=== PATIENT | female | born 1980 | race Caucasian/White ===

== ENCOUNTER 2017-02-17 11:46 | Emergency (ER) | payer BC ==
[2017-02-17 12:01] VITALS: BP 113/77
--- NOTE | 2017-02-17 12:39 | UC ---
Skin Complaint HPI - HPI Summary HPI Summary: L groin fold red, tender, hard. Noticed slight soreness yesterday morning, dramatically worsened last night, now has hard area in the center. Over mons pubis where she shaves, also has several small sore spots. Is concerned this has something to do with her mirena, or possibly getting in a swimming pool the day before. Denies fever or history of skin infections. - History of Current Complaint Chief Complaint: UCGU Time Seen by Provider: 02/17/17 12:09 Stated Complaint: PERSONAL Hx Obtained From: Patient Hx Last Menstrual Period: spotting last month ?: No Onset/Duration: Gradual Onset, Lasting Days Timing: Constant Onset Severity: Mild Current Severity: Moderate Location: Discrete Character: Redness, Raised, Painful Aggravating: Touch Alleviating: Nothing Associated Signs & Symptoms: Positive: Rash, Tenderness - Allergy/Home Medications Allergies/Adverse Reactions: Allergies Allergy/AdvReac Type Severity Reaction Status Date / Time Ibuprofen Allergy Vomiting Verified 02/17/17 12:03 Naproxen Allergy See Comment Verified 02/17/17 12:02 Shellfish Allergy Allergy Swelling Verified 02/17/17 12:02 Review of Systems Constitutional: Negative Skin: Other - L groin red area Eyes: Negative ENT: Negative Respiratory: Negative Cardiovascular: Negative Gastrointestinal: Negative Genitourinary: Negative Motor: Negative Neurovascular: Negative Musculoskeletal: Negative Neurological: Negative Psychological: Negative All Other Systems Reviewed And Are Negative: Yes PMH/Surg Hx/FS Hx/Imm Hx Endocrine History Of: Reports: Thyroid Disease - Pt states history of both hypo/ hyper Denies: Diabetes Cardiovascular History Of: Denies: Cardiac Disorders, Hypertension Respiratory History Of: Denies: COPD, Asthma GI/ History Of: Reports: Gastrointestinal Bleed - from Naproxen use Denies: Ulcer Psychological History Of: Reports: Anxiety - hx of, Depression - hx of - Surgical History Surgical History: Yes Surgery Procedure, Year, and Place: appendectomy 1985, r salpingectomy at age 12yrs. left fallopian tube infection hospitalization 04/2016 - Family History Known Family History: Positive: Cardiac Disease - Social History Occupation: Employed Full-time - [employer] Alcohol Use: Rare Substance Use Type: None Smoking Status (MU): Light Every Day Tobacco Smoker Type: Cigarettes Amount Used/How Often: 5 cig. day Household Exposure Type: Cigarettes - Immunization History Most Recent Influenza Vaccination: never Most Recent Tetanus Shot: unknown Most Recent Pneumonia Vaccination: never Physical Exam Triage Information Reviewed: Yes Appearance: Pain Distress - with movement and sitting, Obese Vital Signs: Initial Vital Signs Temp 97.6 F 02/17/17 11:49 Pulse 96 02/17/17 11:49 Resp 18 02/17/17 11:49 BP 113/77 02/17/17 11:49 Vital Signs Reviewed: Yes Eye Exam: Normal Eyes: Positive: Conjunctiva Clear ENT Exam: Normal ENT: Positive: Normal ENT inspection, Hearing grossly normal, Pharynx normal, TMs normal Dental Exam: Normal Neck exam: Normal Neck: Positive: Supple, Nontender, No Lymphadenopathy Respiratory Exam: Normal Respiratory: Positive: Chest non-tender, Lungs clear, Normal breath sounds, No respiratory distress, No accessory muscle use Cardiovascular: Positive: No Murmur, Tachycardia - high 90s on exam Musculoskeletal Exam: Normal Neurological Exam: Normal Psychological Exam: Normal Skin Exam: Other - L groin folliculitis over shaved area, 20cm oblong region of cellulitis with firm but deep (not fluctuant) abscess in the center, approx 7cm x 2.5cm Course/Dx - Diagnoses Provider Diagnoses: L groin abscess (no procedure). L groin cellulitis Discharge - Discharge Plan Condition: Stable Disposition: HOME Prescriptions: Cephalexin CAP* [Keflex 500 CAP*] 500 mg PO QID #20 cap Sulfamethox/Trimethoprim DS* [Bactrim DS 800/160 TAB*] 1 tab PO BID #14 tab Patient Education Materials: Cellulitis (ED), Abscess (ED) Forms: *Work Release Referrals: Non Staff,Doctor [Primary Care Provider] - 1 Week Additional Instructions: As we discussed, your infection should show signs of improvement within about 1.5 days. Your abscess is not yet ready to incise (and may not need it) -- if it becomes larger, more painful, and doesn't drain on its own, please return here for incision and drainage. If you have rapidly increasing redness, fever, or marked worsening at any time, please come back right away. Apply frequent warm packs and take ibuprofen 400mg 2-4 times per day (with food in your stomach).
== END 2017-02-17 12:43 | disposition home or self-care (01) ==
LOC: UCCORT 11:46
DX: L02.214 Cutaneous abscess of groin (principal); L03.314 Cellulitis of groin; E66.9 Obesity, unspecified; Z88.6 Allergy status to analgesic agent; F17.210 Nicotine dependence, cigarettes, uncomplicated
CPT/HCPCS: 81003; 87086; 99212; G0463

== ENCOUNTER 2017-02-18 18:56 | Emergency (ER) | payer BC ==
[2017-02-18 20:50] VITALS: BP 108/62
[2017-02-18] MEDS ORDERED: Lidocaine 2% W/EPI 1:100,000* 20 ML MDV ONE (21:06)
--- NOTE | 2017-02-18 21:49 | UC ---
Skin Complaint HPI - HPI Summary HPI Summary: Patient was seen yesterday for an abscess in the left lower abdomen. she was treated with bactrim and keflex the area has since increased in size and redness. - History of Current Complaint Chief Complaint: UCSkin Time Seen by Provider: 02/18/17 20:55 Stated Complaint: PERSONAL Hx Obtained From: Patient Hx Last Menstrual Period: has mirena ?: Yes Onset/Duration: Sudden Onset, Lasting Days Skin Exposure Onset/Duration: Days Ago Timing: Constant Onset Severity: Moderate Current Severity: Severe Location: Discrete Character: Swelling, Pain, Redness, Raised Aggravating: Nothing Alleviating: Nothing - Allergy/Home Medications Allergies/Adverse Reactions: Allergies Allergy/AdvReac Type Severity Reaction Status Date / Time Ibuprofen Allergy Vomiting Verified 02/18/17 20:50 Naproxen Allergy See Comment Verified 02/18/17 20:50 Shellfish Allergy Allergy Swelling Verified 02/18/17 20:50 Review of Systems Constitutional: Negative Skin: Negative, Other - large indurated abcess in left lower abdomen Eyes: Negative ENT: Negative Respiratory: Negative Cardiovascular: Negative Gastrointestinal: Negative Genitourinary: Negative Motor: Negative Neurovascular: Negative Musculoskeletal: Negative Neurological: Negative Psychological: Negative All Other Systems Reviewed And Are Negative: Yes PMH/Surg Hx/FS Hx/Imm Hx Endocrine History Of: Reports: Thyroid Disease - Pt states history of both hypo/ hyper Denies: Diabetes Cardiovascular History Of: Denies: Cardiac Disorders, Hypertension Respiratory History Of: Denies: COPD, Asthma GI/ History Of: Reports: Gastrointestinal Bleed - from Naproxen use Denies: Ulcer Psychological History Of: Reports: Anxiety - hx of, Depression - hx of - Surgical History Surgical History: Yes Surgery Procedure, Year, and Place: appendectomy 1985, r salpingectomy at age 12yrs. left fallopian tube infection hospitalization 04/2016 - Family History Known Family History: Positive: Cardiac Disease - Social History Alcohol Use: Rare Substance Use Type: None Smoking Status (MU): Light Every Day Tobacco Smoker Type: Cigarettes Amount Used/How Often: 5 cig. day Household Exposure Type: Cigarettes - Immunization History Most Recent Influenza Vaccination: never Most Recent Tetanus Shot: unknown Most Recent Pneumonia Vaccination: never Physical Exam Triage Information Reviewed: Yes Appearance: Well-Appearing, Well-Nourished, Pain Distress Vital Signs: Initial Vital Signs Temp 98.2 F 02/18/17 20:45 Pulse 76 02/18/17 20:45 Resp 17 02/18/17 20:45 BP 108/62 02/18/17 20:45 Pulse Ox 100 02/18/17 20:45 Vital Signs Reviewed: Yes Eye Exam: Normal Eyes: Positive: Conjunctiva Clear ENT Exam: Normal ENT: Positive: Normal ENT inspection, Hearing grossly normal, Pharynx normal, TMs normal Dental Exam: Normal Neck exam: Normal Neck: Positive: Supple, Nontender, No Lymphadenopathy Respiratory Exam: Normal Respiratory: Positive: Chest non-tender, Lungs clear, Normal breath sounds Cardiovascular Exam: Normal Cardiovascular: Positive: RRR, No Murmur, Pulses Normal Abdomen Description: Positive: Nontender, No Organomegaly, Soft, Other: Bowel Sounds: Positive: Present Musculoskeletal Exam: Normal Musculoskeletal: Positive: Strength Intact, ROM Intact, No Edema Neurological Exam: Normal Neurological: Positive: Alert, Muscle Tone Normal Psychological Exam: Normal Skin: Positive: Other - large 9 in abcess follows the contour of the lower abdomen, red. Course/Dx - Course Course Of Treatment: hx obtained, exam performed, I and D of the abcess removed moderate amount of purulent drainage. wound culture taken. COntinue with current abx. dressing applied. - Diagnoses Provider Diagnoses: abscess Discharge - Discharge Plan Condition: Stable Disposition: HOME Patient Education Materials: Abscess (ED) Forms: *Work Release Additional Instructions: continue the current course of antibiotics. Hot pack the area multiple times a day. follow up if there is no improvement, fever develops or increase in pain.
== END 2017-02-18 22:04 | disposition home or self-care (01) ==
LOC: UCCORT 18:56
DX: L02.211 Cutaneous abscess of abdominal wall (principal); Z88.6 Allergy status to analgesic agent; F17.210 Nicotine dependence, cigarettes, uncomplicated
CPT/HCPCS: 10060; 87070; 87205; 87640; 87641; 99211; G0463

== ENCOUNTER 2018-01-05 19:29 | Emergency (ER) | payer BC ==
[2018-01-05 19:48] VITALS: BP 133/91
--- NOTE | 2018-01-05 20:21 | UC ---
Elbow Pain - HPI Summary HPI Summary: Pt presents with right elbow pain for the last 4 days. She tells me that she moved living quarters a few days ago and has been doing a lot of lifting, overhead movements, and painting. She denies specific injury, numbness, tingling , or previous injury. She has taken ibuprofen for her pain, which is not helping. - History of Current Complaint Chief Complaint: UCUpperExtremity Stated Complaint: ELBOW PAIN Time Seen by Provider: 01/05/18 20:21 Hx Obtained From: Patient Hx Last Menstrual Period: has mirena Onset/Duration: Atraumatic Severity Initially: Moderate Severity Currently: Moderate Pain Intensity: 8 Pain Scale Used: 0-10 Numeric Character: Dull, Aching Aggravating Factor(s): Movement, Pulling Alleviating Factor(s): Rest - Allergies/Home Medications Allergies/Adverse Reactions: Allergies Allergy/AdvReac Type Severity Reaction Status Date / Time MS Naproxen [Naproxen] Allergy See Comment Verified 01/05/18 19:48 MS Shellfish Allergy Allergy Swelling Verified 01/05/18 19:48 [Shellfish Allergy] Home Medications: Home Medications Levothyroxine TAB* [Synthroid 88 MCG TAB*] 88 mcg PO DAILY 01/05/18 [History Confirmed 01/05/18] Sertraline* [Zoloft*] 25 mg PO DAILY 01/05/18 [History Confirmed 01/05/18] PMH/Surg Hx/FS Hx/Imm Hx Previously Healthy: Yes Endocrine History: Hypothyroidism Psychological History: Anxiety, Depression - Surgical History Surgical History: Yes Surgery Procedure, Year, and Place: appendectomy 1985, r salpingectomy at age 12yrs. left fallopian tube infection hospitalization 04/2016 - Family History Known Family History: Positive: Cardiac Disease - Social History Occupation: Employed Full-time Lives: With Family Alcohol Use: Rare Substance Use Type: None Smoking Status (MU): Light Every Day Tobacco Smoker Type: Cigarettes Amount Used/How Often: 5 cig. day Household Exposure Type: Cigarettes - Immunization History Most Recent Influenza Vaccination: never Most Recent Tetanus Shot: unknown Most Recent Pneumonia Vaccination: never Review of Systems Constitutional: Negative Skin: Negative Respiratory: Negative Cardiovascular: Negative Neurovascular: Negative Musculoskeletal: Other: - Right elbow pain Neurological: Negative Psychological: Negative All Other Systems Reviewed And Are Negative: Yes Physical Exam Triage Information Reviewed: Yes Appearance: Well-Appearing, No Pain Distress, Well-Nourished Vital Signs: Initial Vital Signs Temp 97.6 F 01/05/18 19:42 Pulse 90 01/05/18 19:42 Resp 18 01/05/18 19:42 BP 133/91 01/05/18 19:42 Pulse Ox 98 01/05/18 19:42 Vital Signs Reviewed: Yes Neck: Positive: Supple, Nontender, No Lymphadenopathy Respiratory: Positive: Lungs clear, Normal breath sounds, No respiratory distress, No accessory muscle use Cardiovascular: Positive: RRR, No Murmur, Pulses Normal - Right radial and ulnar Musculoskeletal: Positive: Strength Intact - Right shoulder and elbow, ROM Intact - Right shoulder and elbow, No Edema - Right shoulder and elbow, Other: - Right elbow: TTP over lateral epicondyle. Pain with resisted middle finger extension. NTTP medial epicondyle or right shoulder. Neurological: Positive: Alert, Other: - Sensations intact right upper extremity Psychological: Positive: Age Appropriate Behavior Skin: Negative: rashes, significant lesion(s) Elbow Pain Course/Dx - Course Course Of Treatment: IMPRESSION: NO ACUTE OSSEOUS INJURY. IF SYMPTOMS PERSIST, RECOMMEND REPEAT IMAGING. Suspect lateral epicondylitis. Advised to RICE, try and an elbow brace, and will try Meloxicam for pain - Differential Dx/Diagnosis Provider Diagnoses: right lateral epicondylitis Discharge - Discharge Plan Condition: Stable Disposition: HOME Prescriptions: Meloxicam 7.5 mg PO BID PRN #20 tab PRN Reason: Pain Patient Education Materials: Tennis Elbow (ED) Forms: *Work Release Referrals: No Primary Care Phys,NOPCP [Primary Care Provider] - Additional Instructions: If you develop a fever, shortness of breath, chest pain, new or worsening symptoms - please call your PCP or go to the ED. Your blood pressure was high at todays visit. Please see your primary provider within 4 weeks for recheck and re-evaluation. 1) Heat and rest your elbow as much as possible over the next 24-48 hours 2) May try an OTC elbow brace to wear when active for comfort.
--- NOTE | 2018-01-05 20:21 | RAD ---
HISTORY: Right elbow pain, subacute trauma COMPARISONS: None VIEWS: 4, Frontal, lateral, and oblique views of the right elbow FINDINGS: BONE DENSITY: Normal. BONES: There is no displaced fracture. JOINTS: There is no arthropathy. There is no posterior supracondylar fat pad to suggest a joint effusion. ALIGNMENT: There is no dislocation. SOFT TISSUES: Unremarkable. OTHER FINDINGS: None. IMPRESSION: NO ACUTE OSSEOUS INJURY. IF SYMPTOMS PERSIST, RECOMMEND REPEAT IMAGING.
== END 2018-01-05 21:02 | disposition home or self-care (01) ==
LOC: UCEAST 19:29
DX: M77.11 Lateral epicondylitis, right elbow (principal); F17.210 Nicotine dependence, cigarettes, uncomplicated
CPT/HCPCS: 99212; G0463

== ENCOUNTER 2018-04-12 07:43 | Day surgery (SDC) | payer BC ==
[~2018-04-12 07:43] MED LIST: Buffered Lidocaine 0.9% SYRIN* 5 ML/SYR SYRINGE INTRADERM ONE; Sodium Citrate/Citric Acid* 15 ML UDC PO ONE
[2018-04-12] MEDS ORDERED: Sodium Citrate/Citric Acid* 15 ML UDC ONE (07:56)
[2018-04-12] MEDS ORDERED: ceFAZolin 2 GM PREMIX (*) 2 GM/50 ML BAG IVPB ONE (07:56)
[2018-04-12] MEDS ORDERED: Buffered Lidocaine 0.9% SYRIN* 5 ML/SYR SYRINGE ONE (07:56)
[2018-04-12] MEDS ORDERED: Bupivacaine 0.25% SDV* 30 ML ONE (09:00)
[2018-04-12] MEDS ORDERED: Naloxone* 0.4 MG/ML 1 ML VIAL IV PRN (09:39)
[2018-04-12] MEDS ORDERED: DiMENhydriNATE IV* 50 MG/ML VIAL IV PUSH PRN (09:39)
[2018-04-12] MEDS ORDERED: fentaNYL* 50 MCG/ML 2 ML VIAL (100 MCG VIAL) ONE ×2 (10:00→11:04)
[2018-04-12] MEDS ORDERED: Lidocaine 2% PF * 5 ML VIAL ONE (10:00)
[2018-04-12] MEDS ORDERED: Propofol* 10 MG/ML 20 ML BTL IV PUSH ONE (10:00)
[2018-04-12] MEDS ORDERED: Dexamethasone IV* 4 MG/ML 1 ML (4 MG) ONE (10:15)
[2018-04-12] MEDS: fentaNYL* 50 MCG/ML 2 ML VIAL (100 MCG VIAL) IV PRN ×2 (11:06→11:21)
[2018-04-12] MEDS ORDERED: HYDROcodone/ACETAMIN 5-325 MG* 1 TAB ONE ×2 (11:14→11:53)
--- NOTE | 2018-04-12 11:18 | OP ---
Operative Report - Blank - Operative Report Date of Operation: 04/12/18 Note: DATE OF OPERATION: 04/12/18 - SDS DATE OF : 1980 SURGEON: Geremias Stein MD [facility]: [facility] ANESTHESIOLOGIST: Dr. Servin. ANESTHESIA: General. PRE-OP DIAGNOSIS: Right cubital tunnel syndrome. POST-OP DIAGNOSIS: Right cubital tunnel syndrome. OPERATIVE PROCEDURE: Right open cubital tunnel release. INDICATIONS: Ysabel has progressive right cubital syndrome. We talked about risks and benefits. She wanted to proceed. ESTIMATED BLOOD LOSS: 2 mL. COMPLICATIONS: None. FINDINGS: As expected. DESCRIPTION OF PROCEDURE: She was seen in the preoperative holding area. The correct side, site and the procedure were identified. We came back to the operating room. I anesthetized the operative area with 0.25% plain Marcaine. The arm was prepped and draped in usual fashion. The arm was exsanguinated with the Esmarch and the tourniquet was inflated to 250 mmHg. I made a curvilinear incision centered over Osbornes ligament. Dissection was carried down through the subcutaneous tissue taking care to identify and protect the medial antebrachial cutaneous nerve throughout the case. I began the decompression just proximal to Osbornes ligament. I released the fascia overlying the nerve proximally up past the arcade of struthers. I then released Osbornes ligament and then superficial FCU fascia. I split the two head of the FCU and released the subfascial layer in its entirety preserving the motor branches. I then checked the decompression. The elbow was flexed and extended. There was no subluxation of the nerve so I did not need to transpose the nerve. Hemostasis was obtained. The subcutaneous tissue was reapproximated with 3-0 vicryl suture. The skin was closed with 4-0 monocryl and steri strips. Marcaine 0.25% was infiltrated in the operative area. The wound was dressed with soft dressings and the patient was woken up and taken to recovery in stable condition.
[2018-04-12 12:20] VITALS: BP 122/70
== END 2018-04-12 12:43 | disposition home or self-care (01) ==
LOC: OR 07:43
PROVIDERS: ATTEND Orthopaedic Surgery Hand Surgery
DX: G56.21 Lesion of ulnar nerve, right upper limb (principal); E03.9 Hypothyroidism, unspecified; K21.9 Gastro-esophageal reflux disease without esophagitis; F17.210 Nicotine dependence, cigarettes, uncomplicated; Z68.37 Body mass index [BMI] 37.0-37.9, adult
CPT/HCPCS: 81025; A9270-GY; J0690; J1100; J2704; J3010

== ENCOUNTER 2019-03-18 20:50 | Emergency (ER) | payer BC ==
[2019-03-18 21:06] VITALS: BP 129/78
[2019-03-18] MEDS ORDERED: Ketorolac INJ* 30 MG/ML 1 ML VIAL IM ONE (21:14)
--- NOTE | 2019-03-18 21:29 | UC ---
Neck Pain HPI - HPI Summary HPI Summary: 38 -year-old female who has chronic problems with neck and back pain and muscle tightness. She states about 2 or 3 days ago she woke up in the morning and she had some right-sided neck pain and right shoulder pain. She has a history of sciatica which she states is been flaring up as well. She does go to a chiropractor occasionally and is able to have some of that relieved but then usually one or 2 days later she has problems with muscle spasm. She is on a muscle relaxant at home. She denies any numbness or tingling in her extremities. - History of Current Complaint Chief Complaint: UCUpperExtremity Stated Complaint: NECK PAIN Time Seen by Provider: 03/18/19 21:09 Hx Obtained From: Patient Hx Last Menstrual Period: merena ?: No Onset/Duration Of Injury/Symptoms: Days - 3 days ago she woke up and like she had slept wrong with some right-sided neck pain and some lower back pain which is her chronic sciatica. Timing: Constant Onset/Duration: Gradual Onset Severity: Moderate Pain Intensity: 7 Character: Aching, Spasmotic Alleviating Factors: Nothing - She does have a muscle relaxant which she takes at home. Associated Signs & Symptoms: Positive: Negative Related History: Other - Chronic neck and back pain. - Allergies/Home Medications Allergies/Adverse Reactions: Allergies Allergy/AdvReac Type Severity Reaction Status Date / Time morphine Allergy ITCHY Verified 04/12/18 07:56 naproxen Allergy GI BLEED Verified 04/12/18 07:56 shellfish derived Allergy Swelling Verified 04/12/18 07:56 Home Medications: Home Medications Benzonatate CAP* [Tessalon 100 MG CAP*] 100 mg 03/18/19 [History] Cyclobenzaprine HCl 10 mg 03/18/19 [History] busPIRone TAB* [Buspar TAB*] 10 mg 03/18/19 [History] PMH/Surg Hx/FS Hx/Imm Hx Previously Healthy: Yes Other Neurological History: Chronic neck and back pain. History of sciatica. - Surgical History Surgical History: Yes Surgery Procedure, Year, and Place: APPENDIX BURST-appendectomy 1985, r salpingectomy at age 12yrs. left fallopian tube infection hospitalization 2015. elbow surgery 2017 and sinus surgery 2018 - Family History Known Family History: Positive: Cardiac Disease - Social History Alcohol Use: Occasionally Substance Use Type: None Smoking Status (MU): Light Every Day Tobacco Smoker Type: Cigarettes Amount Used/How Often: 1/2 PPD X OFF AND ON FOR 13 YRS Have You Smoked in the Last Year: No Household Exposure Type: Cigarettes - Immunization History Most Recent Influenza Vaccination: never Most Recent Tetanus Shot: unknown Most Recent Pneumonia Vaccination: never Review of Systems All Other Systems Reviewed And Are Negative: Yes Motor: Positive: Negative Neurovascular: Positive: Negative - Chronic right-sided neck pain., History of sciatica. Neurological: Positive: Negative Psychological: Positive: Negative Is Patient Immunocompromised?: No Physical Exam Triage Information Reviewed: Yes Appearance: Well-Appearing, No Pain Distress, Well-Nourished Vital Signs: Initial Vital Signs Temp 99.1 F 03/18/19 20:58 Pulse 95 03/18/19 20:58 Resp 16 03/18/19 20:58 BP 129/78 03/18/19 20:58 Pulse Ox 98 03/18/19 20:58 Vital Signs Reviewed: Yes Eye Exam: Normal Neck: Positive: No Lymphadenopathy - Patient has a mild spasm of the right sternocleidal mastoid muscle but she does have full range of motion. Respiratory: Positive: Lungs clear, Normal breath sounds, No respiratory distress, No accessory muscle use Cardiovascular: Positive: RRR, No Murmur, Pulses Normal, Brisk Capillary Refill Musculoskeletal: Positive: Strength Intact, ROM Intact - Mild tenderness on palpation right trapezius muscle. Patient also tender over the right buttock. Neurological: Positive: Alert, Muscle Tone Normal - Good peripheral pulses neuro sensation capillary refill. Psychological Exam: Normal Skin Exam: Normal Neck Pain Course/Dx - Course Course Of Treatment: Patient had a history of a gastrointestinal bleed years ago when she was taking naproxen on a regular basis. She states she is able to take ibuprofen without any difficulties or adverse reactions. I gave her Toradol 30 mg IM here for pain and she is to continue her muscle relaxant at home. I did give her a prescription for 20 tablets of Motrin 600 mg but advised her to take it sparingly for pain and rather use Tylenol and her muscle relaxant. She is agreeable with this. I did tell her to take the Motrin with food. - Differential Dx/Diagnosis Provider Diagnosis: Sciatica, Strain of right trapezius muscle Discharge - Sign-Out/Discharge Documenting (check all that apply): Patient Departure All imaging exams completed and their final reports reviewed: No Studies - Discharge Plan Condition: Fair Disposition: HOME Prescriptions: Ibuprofen TAB* [Motrin TAB* 600 MG] 600 mg PO Q8H PRN #20 tab PRN Reason: Pain Patient Education Materials: Sciatica (ED) Forms: *Work Release Referrals: Janis NO,Stefan Lino [Primary Care Provider] - Additional Instructions: Avoid movements that cause pain, take the Motrin with food but take it sparingly , use Tylenol every 4 hours for pain as needed. Continue her muscle relaxant as directed. Follow-up with your primary care provider if no improvement by Thursday. I heat to the sore area. - Billing Disposition and Condition Condition: FAIR Disposition: Home
== END 2019-03-18 21:30 | disposition home or self-care (01) ==
LOC: UCEAST 20:50
DX: M54.40 Lumbago with sciatica, unspecified side (principal); S46.811A Strain of other muscles, fascia and tendons at shoulder and upper arm level, right arm, initial encounter; X58.XXXA Exposure to other specified factors, initial encounter; Y92.9 Unspecified place or not applicable; Z88.6 Allergy status to analgesic agent; Z88.5 Allergy status to narcotic agent; Z91.013 Allergy to seafood; F17.210 Nicotine dependence, cigarettes, uncomplicated
CPT/HCPCS: 96372; 99212; G0463; J1885

== ENCOUNTER 2019-05-10 19:43 | Emergency (ER) | payer BC ==
[2019-05-10 20:31] VITALS: BP 135/84
[2019-05-10] MEDS ORDERED: Albuterol/Ipratropium NEB.SOL* Albuterol 2.5 MG/Ipratropium 0.5 MG 3 ML INH ONE (21:02)
--- NOTE | 2019-05-10 21:06 | UC ---
Respiratory Complaint HPI - HPI Summary HPI Summary: Patient presents to urgent care for evaluation of a cough she's had for approximately 2 months. Patient states that time she coughs so much she has posttussive emesis. Cough is nonproductive. Patient states she does wheeze. Patient did go to her primary about 1 month ago was started on Tessalon Perles with little improvement. Patient without fevers or chills. No chest pain. Patient states she feels tired because she doesn't sleep little cough. Patient does smoke cigarettes approximately one third of a pack per day. Patient without recent travel. Patient without recent antibiotics or sick contacts. Patient does not work or have hobbies that involved chemicals or sprays Patient 's medications reviewed this visit. - History of Current Complaint Chief Complaint: UCRespiratory Stated Complaint: COUGH Time Seen by Provider: 05/10/19 20:49 Hx Obtained From: Patient Hx Last Menstrual Period: merena Pain Intensity: 7 - Allergies/Home Medications Allergies/Adverse Reactions: Allergies Allergy/AdvReac Type Severity Reaction Status Date / Time morphine Allergy ITCHY Verified 05/10/19 20:22 naproxen Allergy GI BLEED Verified 05/10/19 20:22 shellfish derived Allergy Swelling Verified 05/10/19 20:22 Home Medications: Home Medications Mometasone NASAL (NF) [Nasonex (NF)] 1 spray INTRANASAL BID 05/10/19 [History Confirmed 05/10/19] PMH/Surg Hx/FS Hx/Imm Hx Previously Healthy: Yes Endocrine History: Thyroid Disease Psychological History: Depression - Surgical History Surgical History: Yes Surgery Procedure, Year, and Place: APPENDIX BURST-appendectomy 1985, r salpingectomy at age 12yrs. left fallopian tube infection hospitalization 2015. elbow surgery 2017 and sinus surgery 2019 - Family History Known Family History: Positive: Cardiac Disease, Non-Contributory - Social History Occupation: Employed Full-time Lives: With Family Alcohol Use: Occasionally Substance Use Type: None Smoking Status (MU): Light Every Day Tobacco Smoker Type: Cigarettes Amount Used/How Often: 1/2 PPD Have You Smoked in the Last Year: No Household Exposure Type: Cigarettes - Immunization History Most Recent Influenza Vaccination: never Most Recent Tetanus Shot: unknown Most Recent Pneumonia Vaccination: never Review of Systems All Other Systems Reviewed And Are Negative: Yes Constitutional: Positive: Negative Skin: Positive: Negative Eyes: Positive: Negative ENT: Positive: Negative Respiratory: Positive: Other Gastrointestinal: Positive: Vomiting - Posttussive Physical Exam - Summary Physical Exam Summary: Vital Signs Reviewed: Yes A+Ox3, no distress Eyes: Conjunctiva Clear, DONALD. EOM intact and full ENT: Hearing grossly normal TM x 2 clear, mmoist, uvula midline, no exudate, no erythema Neck: Positive: Supple Respiratory: Positive: No respiratory distress, No accessory muscle use coarse, intermittent cough. decreased bs at bases few scattered end exp wheeze Cardiovascular: RRR nl s1, s2 no m/r CBT <2 sec abd soft + BS nt/nd no guarding, no distension Musculoskeletal Exam: [place] x 4 without difficulty Strength Intact, ROM Intact Neurological: Positive: Alert, + sensation throughout Psychological: Positive: Normal Response To Family Skin: Positive: no rash, no ecchymosis Triage Information Reviewed: Yes Vital Signs: Initial Vital Signs Temp 98.6 F 05/10/19 20:22 Pulse 89 05/10/19 20:22 Resp 19 05/10/19 20:22 BP 135/84 05/10/19 20:22 Pulse Ox 98 05/10/19 20:22 Diagnostics - Radiology No standard instances Radiology Interpretation Completed By: ED Physician - neg acute Re-Evaluation - Re-Evaluation First Eval Change: Improved - Chest x-ray reviewed preliminary results show no infiltrate or mass according to me. She waited this is a pillow can finally tomorrow will call this discrepancy. Patient improved following the neb. We'll prescribe patient with MDI and spacer. Prednisone. Short course of antibiotics. Recommend patient follow the patient comfortable in agreement with plan. Respiratory Course/Dx - Course Course Of Treatment: Patient presents to urgent care with coarse persistent cough for 2 months. Patient does smoke tobacco. Patient was evaluated by her primary and put on Tessalon Perles without improvement. Patient has not taken any over-the- counter medication. Patient has had a few episodes of posttussive emesis. On exam vital signs are stable. Patient does have a coarse persistent cough with decreased breath sounds at the bases and scattered wheezes. We'll give a DuoNeb chest x-ray and reassess. - Differential Dx/Diagnosis Provider Diagnosis: Cough, Acute bronchitis Discharge - Sign-Out/Discharge Documenting (check all that apply): Patient Departure All imaging exams completed and their final reports reviewed: No - Discharge Plan Condition: Stable Disposition: HOME Prescriptions: Azithromycin 250 mg PO DAILY #4 tablet predniSONE TAB* [Deltasone TAB*] 50 mg PO DAILY #4 tab Patient Education Materials: Acute Bronchitis (ED), Acute Cough (ED) Referrals: Stefan Bruce PA [Primary Care Provider] - Additional Instructions: -Take antibiotics and prednisone exactly as prescribed until gone -Use your albuterol puffer - 2 puffs every 4 hours for the next 2 days - then as needed -Stay well hydrated - avoid excess caffeine and all alcohol - eat regular, healthy meals - okay to take over the counter decongestant and cough medication -- These infections are spread by secretions - do NOT share eating or drinking utensils - clean items you share with other people such as cell phones, computer mouse, TV remote, computer tablets,etc.. Once you have been antibiotics for 2 days, change your toothbrush and your pillowcase. -Contact your doctor tomorrow to arrange a follow-up appointment this week. Call your doctor, return here or go to the emergency department with any questions or concerns As discussed, your radiograph was reviewed by the provider that treated you tonight. It will be read by a radiologist tomorrow morning. If there is a finding other than that discussed with you today, you will receive a call from a care provider. - Billing Disposition and Condition Condition: STABLE Disposition: Home
[2019-05-10] MEDS ORDERED: Azithromycin TAB* 250 MG PO ONE (21:41)
[2019-05-10] MEDS ORDERED: Albuterol HFA INHALER* 8 gm MDI INH ONE (21:41)
[2019-05-10] MEDS ORDERED: predniSONE TAB* 20 MG PO ONE (21:41)
--- NOTE | 2019-05-11 10:07 | UC ---
- Progress Note Progress Note: Final x-ray reading reviewed. NO ACTIVE CARDIOPULMONARY DISEASE. Consistent with provider reading. No change in POC. Course/Dx - Diagnoses Provider Diagnoses: Cough, Acute bronchitis Discharge - Sign-Out/Discharge Documenting (check all that apply): Post-Discharge Follow Up All imaging exams completed and their final reports reviewed: Yes - Discharge Plan Condition: Stable Disposition: HOME Prescriptions: Azithromycin 250 mg PO DAILY #4 tablet predniSONE TAB* [Deltasone TAB*] 50 mg PO DAILY #4 tab Patient Education Materials: Acute Bronchitis (ED), Acute Cough (ED) Referrals: Stefan Bruce PA [Primary Care Provider] - Additional Instructions: -Take antibiotics and prednisone exactly as prescribed until gone -Use your albuterol puffer - 2 puffs every 4 hours for the next 2 days - then as needed -Stay well hydrated - avoid excess caffeine and all alcohol - eat regular, healthy meals - okay to take over the counter decongestant and cough medication -- These infections are spread by secretions - do NOT share eating or drinking utensils - clean items you share with other people such as cell phones, computer mouse, TV remote, computer tablets,etc.. Once you have been antibiotics for 2 days, change your toothbrush and your pillowcase. -Contact your doctor tomorrow to arrange a follow-up appointment this week. Call your doctor, return here or go to the emergency department with any questions or concerns As discussed, your radiograph was reviewed by the provider that treated you tonight. It will be read by a radiologist tomorrow morning. If there is a finding other than that discussed with you today, you will receive a call from a care provider. - Billing Disposition and Condition Condition: STABLE Disposition: Home
== END 2019-05-10 21:55 | disposition home or self-care (01) ==
LOC: UCCORT 19:43
DX: J20.9 Acute bronchitis, unspecified (principal); F17.210 Nicotine dependence, cigarettes, uncomplicated
CPT/HCPCS: 71046; 99213; A9270-GY; G0463; J7512

== ENCOUNTER 2019-10-12 19:10 | Emergency (ER) | payer BC ==
--- OUTSIDE RECORDS SUMMARY | 2019-10-12 19:15 | XMS REPORT | Continuity of Care Document ---
:1980 External Reference #:[id number] Author Name Vamsi Lowery MD Address [address] [place] [address] Care Team Providers Name Role Phone Oswaldo Herndon MD - Emergency Care Team Information Change Control Specialist [phone] Medicine Stefan Bruce PA - Medical Care Team Information Change Control Specialist [phone] Problems Active Problems Provider Date Cellulitis and abscess of trunk Roger Cooper MD,FACS Onset: 02/24/2017 Chronic low back pain Onset: Allergic rhinitis Peña White MD Onset: 06/23/2019 Note: seasonal Social History Type Date Description Comments Sex Unknown Tobacco Use Start: Unknown Current Cigarette Smoker 5-10 Cigarettes Daily Smoking Status Reviewed: 10/03/19 Current Cigarette Smoker 5-10 Cigarettes Daily ETOH Use Currently consumes alcohol socially Tobacco Use Start: Unknown Patient is a current smoker, smokes every day Recreational Drug Use Denies Drug Use Exercise Type/Frequency Exercises rarely Allergies, Adverse Reactions, Alerts Active Allergies Reaction Severity Comments Date Morphine Itchy 02/23/2017 Naproxen Stomach Bleed Severe 02/24/2017 Medications Active Medications SIG Qnty Indications Ordering Date Provider Nicotine Polacrilex One by mouth 72units F17.210 Sebastián, 2018 4mg every 2 hours MD Vamsi Lozenges Esomeprazole 1 by mouth every 30caps K21.9 Sebastián, 08/04/2019 Magnesium day MD Vamsi 20mg Capsules DR Levothyroxine Sodium 1 by mouth every Unknown other day 75mcg Tablets Buspirone HCL 1 tablet by mouth Unknown 30mg everyday Tablets Fluoxetine HCL 1 by mouth every Unknown 40mg day Capsules Ventolin HFA take 2 puffs Unknown every 6 hours as 108(90Base) mcg/Act needed for Aerosol shortness of breath. Levothyroxine Sodium 1 by mouth every Unknown other day 50mcg Tablets opposite to the 75 mgs dosage History Medications Symbicort two puff 10.200gm J41.0 Campbell-Deepak, 08/04/2019 - twice day. MD Vamsi Unknown 160-4.5mcg/Act rinse your Aerosol mouth after every use. No Active Medications Unknown 07/11/2019 - 07/11/2019 Immunizations Description No Information Available Vital Signs Date Vital Result Comment 10/03/2019 3:10pm BP Systolic Sitting Left Arm 125 mmHg BP Diastolic Sitting Left Arm 70 mmHg Heart Rate 90 /min Respiratory Rate 18 /min Height 61 inches 5'1" Weight 205.00 lb BMI (Body Mass Index) 38.7 kg/m2 BSA (Body Surface Area) 1.91 m2 [place] body weight in kilograms 48 kg O2 % BldC Oximetry 97 % 08/04/2019 8:57am BP Systolic Sitting Left Arm 142 mmHg BP Diastolic Sitting Left Arm 90 mmHg Heart Rate 96 /min Respiratory Rate 20 /min Height 61 inches 5'1" Weight 202.38 lb BMI (Body Mass Index) 38.2 kg/m2 BSA (Body Surface Area) 1.90 m2 [place] body weight in kilograms 48 kg O2 % BldC Oximetry 97 % Ra Results Test Acquired Date Facility Test Result H/L Range Note Laboratory test 07/11/2019 [facility] Immunoglobulin 164 IU/mL 6-495 1, [address],[place] [address] [phone] Allergens,Zone 07/11/2019 [facility] mRast Class (Text . [address] Only) [place] [address] [phone] D Pteronyssinus <0.10 kU/L Class 0 D Farinae Mite <0.10 kU/L Class 0 Cat Hair/Dander <0.10 kU/L Class 0 Dog Hair/Dander <0.10 kU/L Class 0 Bluegrass,[place] <0.10 kU/L Class 0 [place] Grass <0.10 kU/L Class 0 [place] Grass <0.10 kU/L Class 0 Cockroach,[place] <0.10 kU/L Class 0 Penicillium Not <0.10 kU/L Class 0 Cladosporium Herbarum <0.10 kU/L Class 0 Apergillis Fumigatus Ige <0.10 kU/L Class 0 Mucor Racemosus <0.10 kU/L Class 0 Alternaria Alternata <0.10 kU/L Class 0 Stemphylium Bot <0.10 kU/L Class 0 Birch,White <0.10 kU/L Class 0 [place],White <0.10 kU/L Class 0 Elm,[place] (White) <0.10 kU/L Class 0 Tyrell,White <0.10 kU/L Class 0 Hazelnut Tree T004 Ige <0.10 kU/L Class 0 [place],White <0.10 kU/L Class 0 [place],White <0.10 kU/L Class 0 [place] <0.10 kU/L Class 0 Ragweed,Short/ <0.10 kU/L Class 0 Mugwort <0.10 kU/L Class 0 Plantain,Spanish <0.10 kU/L Class 0 Pigweed,Rough <0.10 kU/L Class 0 Sheep [place] (DO <0.10 kU/L Class 0 Nettle <0.10 kU/L Class 0 Maple/Bryan Ige T001 <0.10 kU/L Class 0 CBC W/Automated 07/11/2019 [facility] White Blood 10.8 K/uL High 3.1-10.[address] [place] [address] [phone] Red Blood Count 4.65 M/uL Normal 3.90-5.40 Hemoglobin 13.9 gm/dL Normal 11.6-15.8 Hematocrit 41.5 % Normal 36.0-46.1 Mean Cell Volume 89.2 fl Normal 80.9-99.0 Mean Corpuscular HGB 29.9 pg Normal 25.9-32.7 Mean Corpuscular HGB Conc 33.5 g/dL Normal 30.8-34.3 Platelet Count 306 K/uL Normal 155-360 Red Cell Distri Width SD 42.0 fl Normal 36-47 Red Cell Distri Width %CV 12.9 % Normal 11.7-14.4 Mean Platelet Volume 10.6 fl Normal 8.9-12.4 Neut% 69.0 % Normal 40.4-72.8 Lymph % 20.5 % Normal 20.0-42.0 [place] % 6.3 % Normal 4.3-13.2 Eo% 3.4 % Normal 0.0-6.6 Bas% 0.4 % Normal 0.0-1.1 Immature Grans 0.4 % Normal 0.0-5.0 NRBC % 0.0 /100WBC < 10/ 100 WBC Neut# 7.42 K/uL High 1.8-7.0 Lymph # 2.21 K/uL Normal 1.0-4.0 [place] # 0.68 K/uL Normal 0.3-0.9 Eos # 0.37 K/uL Normal 0.0-0.5 Baso # 0.04 K/uL Normal 0.0-0.1 Immature Grans Absolute 0.04 K/uL NRBC # 0.00 K/uL 1 Z01.818 2 Test(s) [id number] Cockroach, [place]; 299620- [id number] Joya Muñoz were developed and had performance characteristics determined by [employer]. These tests have not been cleared or approved by the U.S. Food and Drug Administration. The FDA has determined that such clearance or approval is not necessary. These tests are used for clinical purposes. These should not be regarded as investigational or for research. Performed at: [address] [id number] Cushion Assembler: Ino Irving MD, Phone: [phone] Levels of Specific IgE Class Description of Class ----- < 0.10 0 Negative 0.10 - 0.31 0/I Equivocal/Low 0.32 - 0.55 I Low 0.56 - 1.40 II Moderate 1.41 - 3.90 III High 3.91 - 19.00 IV Very High 19.01 - 100.00 V Very High >100.00 Very High Procedures Date Code Description Status 07/27/2019 22504 Bronchospasm Provocation Evaluation Multi Spirometric Completed Determinati 07/27/2019 74383 Spirometry Completed Medical Devices Description No Information Available Encounters Type Date Location Provider Dx Diagnosis Office Visit 08/04/2019 Pulmonology Jeanna Hicks PA J41.0 Simple chronic 9:00a bronchitis K21.9 Gastro-esophageal reflux disease without esophagitis Z91.19 Patient's noncompliance w oth medical treatment and regimen Z71.6 Tobacco abuse counseling F17.210 Nicotine dependence, cigarettes, uncomplicated Z68.38 Body mass index (BMI) 38.0-38.9, adult Office Visit 07/11/2019 3:30p Pulmonology Peña White MD J41.0 Simple chronic bronchitis Z01.818 Encounter for other preprocedural examination F17.210 Nicotine dependence, cigarettes, uncomplicated Z71.6 Tobacco abuse counseling Assessments Date Code Description Provider 10/03/2019 J41.0 Simple chronic bronchitis Vamsi Lowery MD 08/04/2019 J41.0 Simple chronic bronchitis Jeanna Hicks PA 08/04/2019 K21.9 Gastro-esophageal reflux disease without Jeanna Hicks PA esophagitis 08/04/2019 Z91.19 Patient's noncompliance with other Jeanna Hicks PA medical treatment and regimen 08/04/2019 Z71.6 Tobacco abuse counseling Jeanna Hicks PA 08/04/2019 F17.210 Nicotine dependence, cigarettes, Jeanna Hicks PA uncomplicated 08/04/2019 Z68.38 Body mass index (BMI) 38.0-38.9, adult Jaenna Hicks PA 07/27/2019 J41.0 Simple chronic bronchitis Vamsi Lowery MD 07/11/2019 J41.0 Simple chronic bronchitis Peña White MD 07/11/2019 Z01.818 Encounter for other preprocedural Peña White MD examination 07/11/2019 F17.210 Nicotine dependence, cigarettes, Peña White MD uncomplicated 07/11/2019 Z71.6 Tobacco abuse counseling Peña White MD Plan of Treatment 10/03/2019 - Vamsi Lowery MDJ41.0 Simple chronic bronchitisComments: No therapy recommended except for quitting smokingAs long as she smokes, she will have cough from chronic bronchitisStop Symbicort since normal PFT's + reported side effects of dizziness and chest discomfort.Maintain influenza vaccination up to dateCounseled for weight loss and increased activity Functional Status Description No Information Available Mental Status Description No Information Available Referrals Refer to Reason for Referral Status Appt Date Adis Owens MD Referral for weight loss management. Sent [address], [address] [id number] [phone]
--- OUTSIDE RECORDS SUMMARY | 2019-10-12 19:15 | XMS REPORT | Continuity of Care Document ---
:1980 External Reference #:[id number] Author Name Jeanna Hicks PA (transmitted by agent of provider Vamsi Lowery ) Address [address] [place] [address] Care Team Providers Name Role Phone Oswaldo Herndon MD - Emergency Care Team Information [facility] Stefan Bruce PA - Medical Care Team Information [employer] [facility] [employer] [phone] Problems Active Problems Provider Date Cellulitis and abscess of trunk Roger Cooper MD,FACS Onset: 02/24/2017 Chronic low back pain Onset: Allergic rhinitis Peña White MD Onset: 06/23/2019 Note: seasonal Social History Type Date Description Comments Sex Unknown Tobacco Use Start: Unknown Current Cigarette Smoker 5-10 Cigarettes Daily Smoking Status Reviewed: 08/04/19 Current Cigarette Smoker 5-10 Cigarettes Daily ETOH Use Currently consumes alcohol socially Tobacco Use Start: Unknown Patient is a current smoker, smokes every day Recreational Drug Use Denies Drug Use Exercise Type/Frequency Exercises rarely Allergies, Adverse Reactions, Alerts Active Allergies Reaction Severity Comments Date Morphine Itchy 02/23/2017 Naproxen Stomach Bleed Severe 02/24/2017 Medications Active Medications SIG Qnty Indications Ordering Date Provider Symbicort two puff twice 10.200gm J41.0 Sebastián, 08/04/2019 day. rinse your MD Vamsi 160-4.5mcg/Act mouth after every Aerosol use. Nicotine Polacrilex One by mouth 72units F17.210 Sebastián, 2018 4mg every 2 hours MD Vamsi Lozenges Esomeprazole 1 by mouth every 30caps K21.9 Sebastián, 08/04/2019 Magnesium day MD Vamsi 20mg Capsules DR Levothyroxine Sodium 1 by mouth every Unknown day 75mcg Tablets Buspirone HCL 1 tablet by mouth Unknown 30mg everyday Tablets Fluoxetine HCL 1 by mouth every Unknown 40mg day Capsules Ventolin HFA take 2 puffs Unknown every 6 hours as 108(90Base) mcg/Act needed for Aerosol shortness of breath. History Medications No Active Medications Unknown 07/11/2019 - 07/11/2019 Immunizations Description No Information Available Vital Signs Date Vital Result Comment 08/04/2019 8:57am BP Systolic Sitting Left Arm 142 mmHg BP Diastolic Sitting Left Arm 90 mmHg Heart Rate 96 /min Respiratory Rate 20 /min Height 61 inches 5'1" Weight 202.38 lb BMI (Body Mass Index) 38.2 kg/m2 BSA (Body Surface Area) 1.90 m2 Mathews body weight in kilograms 48 kg O2 % BldC Oximetry 97 % Ra 07/11/2019 3:30pm BP Systolic Sitting Left Arm 116 mmHg BP Diastolic Sitting Left Arm 82 mmHg Heart Rate 96 /min Respiratory Rate 18 /min Height 61 inches 5'1" Weight 203.00 lb BMI (Body Mass Index) 38.4 kg/m2 BSA (Body Surface Area) 1.90 m2 Mathews body weight in kilograms 48 kg O2 % BldC Oximetry 97 % Ora Results Test Date Facility Test Result H/L Range Note Laboratory test 07/11/2019 [facility] Immunoglobulin 164 IU/mL 6-495 1, [address],[place] [address] [phone] Allergens,Zone 1 07/11/2019 [facility] mRast Class (Text . [address] Only) [place] [address] [phone] D Pteronyssinus <0.10 kU/L Class 0 D Farinae Mite <0.10 kU/L Class 0 Cat Hair/Dander <0.10 kU/L Class 0 Dog Hair/Dander <0.10 kU/L Class 0 Bluegrass,[place] <0.10 kU/L Class 0 Bermuda Grass <0.10 kU/L Class 0 Bahia Grass <0.10 kU/L Class 0 Cockroach,Russian <0.10 kU/L Class 0 Penicillium Not <0.10 kU/L Class 0 Cladosporium Herbarum <0.10 kU/L Class 0 Apergillis Fumigatus Ige <0.10 kU/L Class 0 Mucor Racemosus <0.10 kU/L Class 0 Alternaria Alternata <0.10 kU/L Class 0 Stemphylium Bot <0.10 kU/L Class 0 Birch,White <0.10 kU/L Class 0 Talbott,White <0.10 kU/L Class 0 Elm,Russian (White) <0.10 kU/L Class 0 Tyrell,White <0.10 kU/L Class 0 Hazelnut Tree T004 Ige <0.10 kU/L Class 0 Baldwin,White <0.10 kU/L Class 0 Roseville,White <0.10 kU/L Class 0 Duvall,Mountain <0.10 kU/L Class 0 Ragweed,Short/ <0.10 kU/L Class 0 Mugwort <0.10 kU/L Class 0 Plantain,Turkmen <0.10 kU/L Class 0 Pigweed,Rough <0.10 kU/L Class 0 Sheep Mullan (DO <0.10 kU/L Class 0 Nettle <0.10 kU/L Class 0 Maple/[place] Ige T001 <0.10 kU/L Class 0 CBC W/Automated 07/11/2019 [facility] White Blood 10.8 K/uL High 3.1-10.[address] [place] [address] [phone] Red Blood Count 4.65 M/uL Normal 3.90-5.40 [...] 40.4-72.8 Lymph % 20.5 % Normal 20.0-42.0 Hidalgo % 6.3 % Normal 4.3-13.2 Eo% 3.4 % Normal 0.0-6.6 Bas% 0.4 % Normal 0.0-1.1 Immature Grans 0.4 % Normal 0.0-5.0 NRBC % 0.0 /100WBC < 10/ 100 WBC Neut# 7.42 K/uL High 1.8-7.0 Lymph # 2.21 K/uL Normal 1.0-4.0 Hidalgo # 0.68 K/uL Normal 0.3-0.9 Eos # 0.37 K/uL Normal 0.0-0.5 Baso # 0.04 K/uL Normal 0.0-0.1 Immature Grans Absolute 0.04 K/uL NRBC # 0.00 K/uL 1 Z01.818 2 Test(s) [id number] Cockroach, Russian; [id number]- K911-TrR Joya Muñoz were developed and had performance characteristics determined by [facility]. These tests have not been cleared or approved by the U.S. Food and Drug Administration. The FDA has determined that such clearance or approval is not necessary. These tests are used for clinical purposes. These should not be regarded as investigational or for research. Performed at: [address] [id number] Drug Abuse Resistance Education Officer: Ino Irving MD, Phone: [phone] Levels of Specific IgE Class Description of Class ----- < 0.10 0 Negative 0.10 - 0.31 0/I Equivocal/Low 0.32 - 0.55 I Low 0.56 - 1.40 II Moderate 1.41 - 3.90 III High 3.91 - 19.00 IV Very High 19.01 - 100.00 V Very High >100.00 Very High Procedures Date Code Description Status 07/27/2019 42662 Bronchospasm Provocation Evaluation Multi Spirometric Completed Determinati 07/27/2019 59458 Spirometry Completed Medical Devices Description No Information [...] abuse counseling Assessments Date Code Description Provider 08/04/2019 J41.0 Simple chronic bronchitis Jeanna Hicks PA 08/04/2019 K21.9 Gastro-esophageal reflux disease without Jeanna Hicks PA esophagitis 08/04/2019 Z91.19 Patient's noncompliance with other Jeanna Hicks PA medical treatment and regimen 08/04/2019 Z71.6 Tobacco abuse counseling Jeanna Hicks PA 08/04/2019 F17.210 Nicotine dependence, cigarettes, Jeanna Hicks PA uncomplicated 08/04/2019 Z68.38 Body mass index (BMI) 38.0-38.9, adult Jeanna Hicks PA 07/27/2019 J41.0 Simple chronic bronchitis Vamsi Lowery MD 07/11/2019 J41.0 Simple chronic bronchitis Peña White MD 07/11/2019 Z01.818 Encounter for other preprocedural Peña White MD examination 07/11/2019 F17.210 Nicotine dependence, cigarettes, Peña White MD uncomplicated 07/11/2019 Z71.6 Tobacco abuse counseling Peña White MD Plan of Treatment Future Appointment(s):10/03/2019 3:00 pm - Vamsi Lowery MD at [facility]/05/2019 - Jeanna Hicks PAJ41.0 Simple chronic bronchitisNew Medication:Symbicort 160-4.5 mcg/Act - two puff twice day. rinse your mouth after every use.Comments:Avoid pollution, fumes and second hand smoke.Drink at least 10 glasses fluid daily Please use your Symbicort twice daily, rinse your mouth after every use.Follow up:2 lkuxwkM54.9 Gastro-esophageal reflux disease without esophagitisNew Medication:Esomeprazole Magnesium 20 mg - 1 by mouth every dayComments:Start Esomeprazole once daily for the next three months to reduce your symptoms as well. What is acid reflux? ?? Acid reflux is when the acid that is normally in your stomach backs up into the esophagus, tube that carries food from your mouth to your stomach (figure 1). Another term for acid reflux is"gastroesophageal reflux disease," or GERD.Is there anything I can do on my own to improve my symptoms? ?? Yes. You might feel better if you:Lose weight (if you are overweight)Raise the head of your bed by 6 to 8 inches (for example, by putting blocks of wood or rubber under 2 legs of the bed or a Styrofoam wedge under the mattress)Avoid foods that make your symptoms worse ( examples include coffee, chocolate, alcohol, peppermint, and fatty foods)Cut down on the amount of alcohol you drinkStop smoking, if you smokeAvoid lying down for 3 hours after a mealZ91.19 Patient's noncompliance with other medical treatment and yfpzyksD56.6 Tobacco abuse iosipukdmgN67.210 Nicotine dependence, cigarettes, uncomplicatedNew Medication:Nicotine Polacrilex 4 mg - One by mouth every 2 hoursComments:Start using the nicotine replacement, set a quit date. Call the [facility] Quit line.Z68.38 Body mass index (BMI) 38.0-38.9, adultComments:We will refer you to Dr. Owens for further assistance in your weight loss management. Goals 08/04/2019 - Jeanna Hicks, PAJ41.0 Simple chronic bronchitis1. If you smoke, develop a plan to quit. 2. Use medication as instructed. 3. Maintain or increase activity level for independence.K21.9 Gastro-esophageal reflux disease without esophagitisTo have GERD symptoms less than twice a week. Functional Status Description No Information Available Mental Status Description No Information Available Referrals Description No Information Available
[2019-10-12 20:08] VITALS: BP 122/66
[2019-10-12] MEDS ORDERED: Ondansetron ODT TAB* 4 MG PO ONE ×2 (20:33→21:30)
--- NOTE | 2019-10-12 21:24 | UC ---
Abdominal Pain Female HPI - HPI Summary HPI Summary: 3 DAYS OF NAUSEA, VOMITING AND CRAMPY ABDOMINAL PAIN. STATES SHE IS UNABLE TO KEEP ANYTHING DOWN BY MOUTH. ALSO HAS SORE THROAT, BODY ACHES AND COUGH. NO FEVER. REPORTS SHE HAS HAD SEVERAL MONTHS OF INTERMITTENT ABDOMINAL PAIN BUT THIS IS WORSE. - History of Current Complaint Chief Complaint: UCGeneralIllness Stated Complaint: VOMITING Time Seen by Provider: 10/12/19 20:32 Hx Obtained From: Patient Hx Last Menstrual Period: IUD Onset/Duration: Gradual Onset, Lasting Days, Still Present Timing: Constant Severity Initially: Moderate Severity Currently: Moderate Pain Intensity: 4 Pain Scale Used: 0-10 Numeric Location: Diffuse Radiates: No Character: Cramping Aggravating Factor(s): Nothing Alleviating Factor(s): Nothing Associated Signs and Symptoms: Positive: Decreased Appetite, Nausea, Vomiting. Negative: Fever, Urinary Symptoms Allergies/Adverse Reactions: Allergies Allergy/AdvReac Type Severity Reaction Status Date / Time morphine Allergy ITCHY Verified 10/12/19 19:59 naproxen Allergy GI BLEED Verified 10/12/19 19:59 shellfish derived Allergy Swelling Verified 10/12/19 19:59 Home Medications: Home Medications Nadolol [Corgard] 1 tab PO DAILY 10/12/19 [History Confirmed 10/12/19] PMH/Surg Hx/FS Hx/Imm Hx Endocrine History: Thyroid Disease - GRAVES Psychological History: Anxiety, Depression - Surgical History Surgical History: Yes Surgery Procedure, Year, and Place: [facility]-appendectomy 1985, r salpingectomy at age 12yrs. left fallopian tube infection hospitalization 2015. elbow surgery 2017 and sinus surgery 2019 - Family History Known Family History: Positive: Cardiac Disease, Non-Contributory - Social History Alcohol Use: None Substance Use Type: None Smoking Status (MU): Heavy Every Day Tobacco Smoker Type: Cigarettes Amount Used/How Often: 1/2 PPD Have You Smoked in the Last Year: No Household Exposure Type: Cigarettes - Immunization History Most Recent Influenza Vaccination: never Most Recent Tetanus Shot: unknown Most Recent Pneumonia Vaccination: never Review of Systems All Other Systems Reviewed And Are Negative: Yes Constitutional: Positive: Fatigue ENT: Positive: Sore Throat, Nasal Discharge Respiratory: Positive: Cough Cardiovascular: Positive: Negative Gastrointestinal: Positive: Abdominal Pain, Vomiting, Nausea Genitourinary: Positive: Negative Musculoskeletal: Positive: Myalgia Physical Exam Triage Information Reviewed: Yes Appearance: Well-Appearing, No Pain Distress, Well-Nourished Vital Signs: Initial Vital Signs Temp 98.7 F 10/12/19 20:00 Pulse 77 10/12/19 20:00 Resp 16 10/12/19 20:00 BP 122/66 10/12/19 20:00 Pulse Ox 97 10/12/19 20:00 Laboratory Tests 10/12/19 10/12/19 10/12/19 20:34 21:22 21:23 POC Urine Color Dark yellow POC Urine Clarity Slightly cloudy POC Urine pH 7.0 POC Ur Specif [place] 1.020 POC Urine Protein Trace A POC Ur Glucose (UA) Negative POC Urine Ketones Trace A POC Urine Blood Negative POC Urine Nitrite Negative POC Urine Bilirubin 1+ A POC Urine Urobilinogen >=8.0 A POC U Leukocyte Esteras Negative Influenza B (Rapid) Positive A Group A Strep Rapid Negative Vital Signs Reviewed: Yes Eyes: Positive: Conjunctiva Clear ENT: Positive: Hearing grossly normal, Pharynx normal, TMs normal Neck: Positive: Supple, Nontender, No Lymphadenopathy Respiratory Exam: Normal Cardiovascular Exam: Normal Abdomen Description: Positive: Soft, Other: - LLQ TENDERNESS. Negative: CVA Tenderness (R), CVA Tenderness (L), Distended, Guarding Bowel Sounds: Positive: Present Musculoskeletal: Positive: No Edema Neurological: Positive: Alert Psychological: Positive: Age Appropriate Behavior Skin: Negative: Rashes Abd Pain Female Course/Dx - Course Course Of Treatment: FLU B POS. STREP NEG. TAMIFLU BID X 5 DAYS. ZOFRAN NEEDED. STATES SHE'LL GO TO THE ER WITHOUT FAIL IF SHE IS UNABLE TO KEEP ANYTHING DOWN OVER THE NEXT COUPLE OF DAYS OR IF HER ABDOMINAL PAIN WORSENS. URINE DIP CONSISTENT WITH RELATIVE DEHYDRATION. - Differential Dx/Diagnosis Provider Diagnosis: LLQ abdominal pain, Influenza B Discharge ED - Sign-Out/Discharge Documenting (check all that apply): Patient Departure All imaging exams completed and their final reports reviewed: No Studies - Discharge Plan Condition: Stable Disposition: HOME Prescriptions: Ondansetron ODT TAB* [Zofran Odt TAB*] 4 mg PO Q6H PRN #20 tab.odt PRN Reason: Nausea/Vomiting Oseltamivir CAP* [Tamiflu CAP*] 75 mg PO BID #9 cap Patient Education Materials: Influenza (ED), Abdominal Pain (ED) Forms: *Work Release Referrals: Doroteo Castellanos MD [Primary Care Provider] - If Needed Additional Instructions: SWAB POSITIVE FOR INFLUENZA B. TAMIFLU TWICE DAILY FOR 5 DAYS. OTC MEDS NEEDED FOR FEVER, BODY ACHES. STAY WELL HYDRATED AND RESTED. SEEK FOLLOW-UP IF YOU ARE NOT IMPROVING EXPECTED. STREP NEGATIVE. YOUR URINE IS CONSISTENT WITH RELATIVE DEHYDRATION. ZOFRAN NEEDED FOR NAUSEA. IF YOU ARE UNABLE TO KEEP ANYTHING DOWN AND YOUR SYMPTOMS ARE NOT IMPROVING GO TO THE ER FOR FURTHER EVALUATION AND TREATMENT. - Billing Disposition and Condition Condition: STABLE Disposition: Home
[2019-10-12 21:27] LABS: Influenza B Molecular POSITIVE (Negative)
[2019-10-12] MEDS ORDERED: Oseltamivir CAP* 75 MG CAP PO ONE (21:48)
== END 2019-10-12 22:00 | disposition home or self-care (01) ==
LOC: UCCORT 19:10
DX: J11.1 Influenza due to unidentified influenza virus with other respiratory manifestations (principal); R10.32 Left lower quadrant pain; R11.2 Nausea with vomiting, unspecified; F41.9 Anxiety disorder, unspecified; E05.00 Thyrotoxicosis with diffuse goiter without thyrotoxic crisis or storm; Z88.5 Allergy status to narcotic agent; Z88.6 Allergy status to analgesic agent; Z91.013 Allergy to seafood; Z79.899 Other long term (current) drug therapy; F17.210 Nicotine dependence, cigarettes, uncomplicated
CPT/HCPCS: 81003; 87651; 99213; A9270-GY; G0463

== ENCOUNTER 2019-12-29 08:32 | Day surgery (SDC) | payer BC ==
[~2019-12-29 08:32] MED LIST changes: -Buffered Lidocaine 0.9% SYRIN* 5 ML/SYR SYRINGE INTRADERM ONE; +Buffered Lidocaine 1% SYRIN* 1 ML/SYRINGE INTRADERM ONE; +Lactated Ringers 1000 ML Bag* 1,000 ML IV SCH; +Naloxone* 0.4 MG/ML 1 ML VIAL IV PRN; +Ondansetron INJ* 2 MG/ML VIAL IV PRN; -Sodium Citrate/Citric Acid* 15 ML UDC PO ONE
[2019-12-29] MEDS ORDERED: Lidocaine 1% INJ* 10 MG/ML 30 ML SDV ONE (09:19)
[2019-12-29] MEDS ORDERED: Bupivacaine 0.25% SDV* 30 ML ONE (09:19)
[2019-12-29] MEDS ORDERED: Buffered Lidocaine 1% SYRIN* 1 ML/SYRINGE INTRADERM ONE (09:27)
[2019-12-29] MEDS ORDERED: Propofol* 10 MG/ML 20 ML BTL ONE (09:50)
[2019-12-29] MEDS ORDERED: HYDROmorphone INJ1* 1 MG/ML SYRINGE ONE ×2 (09:50→12:34)
[2019-12-29] MEDS ORDERED: Rocuronium* 10 MG/ML VIAL ONE (09:53)
[2019-12-29] MEDS ORDERED: Dexamethasone IV* 4 MG/ML 1 ML (4 MG) ONE (12:05)
[2019-12-29] MEDS ORDERED: Ketorolac INJ* 30 MG/ML 1 ML VIAL ONE (12:05)
[2019-12-29] MEDS ORDERED: Ondansetron INJ* 2 MG/ML VIAL ONE (12:05)
[2019-12-29] MEDS ORDERED: Sugammadex * 200 MG/2 ML VIAL IV PUSH ONE (12:07)
[2019-12-29] MEDS ORDERED: oxyCODONE/Acetamin 5/325 MG* TAB PO PRN (12:20)
[2019-12-29] MEDS: HYDROmorphone INJ1* 1 MG/ML SYRINGE IV PRN ×4 (12:35→13:20)
[2019-12-29] MEDS ORDERED: Benzocaine/Butamben/Tetracain (CETACAINE - SINGLE USE) 5 gm TOPICAL PRN (13:35)
[2019-12-29] MEDS ORDERED: oxyCODONE/Acetamin 5/325 MG* TAB ONE (16:03)
--- NOTE | 2019-12-29 17:52 | OP ---
CC: Dr. Matt Da Silva * DATE OF OPERATION: 12/29/19 - SDS DATE OF : 78 SERVICE: General Surgery. SURGEON: Roseline Block MD. STAKER SURVEYING: Cherie Esteban NP. ANESTHESIOLOGIST: Dr. Soto. ANESTHESIA: General endotracheal anesthesia. PRE-OP DIAGNOSIS: Graves disease. POST-OP DIAGNOSIS: Graves disease. OPERATIVE PROCEDURE: Total thyroidectomy. ESTIMATED BLOOD LOSS: Minimal, less than 10 cc. SPECIMENS: Right and left thyroid lobes. INDICATIONS FOR SURGERY: Ms. Mak is a very pleasant 39-year-old female with a history of Himanshu thyroiditis who was recently found to have Graves disease. She has been has been refractory to medical management and has also developed Graves orbitopathy. For these reasons, she wished to undergo a total thyroidectomy. She understood that the risks included, but were not limited to bleeding, infection, injury to nearby structures such as the recurrent laryngeal nerve. She understood the alternatives and benefits as well and she wished to proceed. DESCRIPTION OF PROCEDURE: The patient was brought back to the operating room and placed on the operating table in the supine position. Sequential compression devices were placed on the bilateral lower extremities for DVT prophylaxis. No antibiotics were administered. The electrodes for the nerve monitor were attached and a time-out was performed prior to administering local anesthesia to the neck, which consisted of 0.25% Marcaine and 1% lidocaine mixed. After this was done, her neck was prepped and draped in normal sterile fashion and a second time-out was performed verifying the patient's name, date of , and the procedure to be performed. Next, an approximately 4 cm incision was made in a natural crease line approximately 2 fingerbreadths above the sternal notch. The skin was divided down through the subcutaneous tissue. The platysma was divided and the inferior and superior subplatysmal flaps were developed. Next, the median raphe between the strap muscles was identified and divided and the isthmus was divided off of the trachea posteriorly. Once this was done, attention was turned towards first removing the right thyroid lobe. The medial attachments of the thyroid lobe to the trachea were divided. The space of Santos between the superior pole of the thyroid gland and the cricothyroid muscle was developed and divided. The lateral attachments of the strap muscle to the thyroid lobe were then bluntly divided and the middle thyroid vein was identified and divided. After this, the superior pole vessels were divided using a combination of 2-0 silk sutures and LigaSure. Next, the right thyroid lobe was then able to be rotated medially and anteriorly out the neck. The right upper parathyroid was identified very easily. It was posterior to the thyroid lobe and it was dissected off of its surrounding areolar tissue around the thyroid gland and protected on its pedicle. Next, the recurrent laryngeal nerve was identified on the right using both the nerve monitor and visual identification. Its course was traced out inferiorly and superiorly where it entered the inferior constrictor muscles. After this was identified, the right lower parathyroid gland was then identified on the lower pole of the thyroid gland. It was and preserved on its pedicle. The thyroid gland was then able to be removed off of the trachea using LigaSure. After this was done, the upper pole was marked and the specimen was carried off. Attention was then turned towards the left thyroid lobe. In a similar fashion, the medial attachments to the trachea were divided using LigaSure. The space of Santos was developed and then the left thyroid lobe was able to be rotated anteriorly out of the neck the strap muscles laterally with blunt dissection. The middle thyroid vein was identified and divided and the superior pole vessels were then taken down using a combination of 2-0 silk sutures and LigaSure. The left thyroid lobe was then able to be rotated medially and anteriorly out of the neck. The upper parathyroid gland was identified very easily and preserved on its pedicle. The left recurrent laryngeal nerve was also identified and its entire course was traced out until it inserted into the inferior constrictor muscles. Next, the thyroid lobe was then able to be taken off the trachea using LigaSure. The left lower parathyroid gland was not definitively identified, but was thought to be likely in the thyrothymic ligament. After this was done, the left thyroid lobe was examined carefully for parathyroid glands and none were identified. Its upper pole was marked and then was carried off the table as a specimen. At this point , hemostasis was obtained in the neck. Tisseel was placed. The strap muscles were then reapproximated using interrupted 4-0 Vicryl sutures. The platysma was reapproximated using interrupted 4-0 Vicryl sutures. The skin was closed using a running 5-0 Prolene suture. Sterile dressings were then placed and the patient's anesthesia was reversed and she was taken to the PACU in stable condition. At the end of the case, all counts were correct and I was present during the entirety of the case. [id number]/[facility] #: [id number] SAILAJA
[2019-12-29 18:24] VITALS: BP 128/73
== END 2019-12-29 18:41 | disposition home or self-care (01) ==
LOC: OR 08:32
PROVIDERS: ATTEND Surgery
DX: E05.00 Thyrotoxicosis with diffuse goiter without thyrotoxic crisis or storm (principal); F41.8 Other specified anxiety disorders; F17.210 Nicotine dependence, cigarettes, uncomplicated
CPT/HCPCS: 88307; A9270-GY; C1776; J1100; J1170; J1885; J2405; J2704; J3490